=== PATIENT | female | born 1935 | race Caucasian/White ===

== ENCOUNTER 2020-12-09 11:15 | Outpatient (CLI) | payer MEDICARE | END 2020-12-09 11:16 | disposition home or self-care (01) | LOC: CSHWCC 11:15 | PROVIDERS: ATTEND Nurse Practitioner Family | DX: I87.312 Chronic venous hypertension (idiopathic) with ulcer of left lower extremity (principal); I87.2 Venous insufficiency (chronic) (peripheral); E10.622 Type 1 diabetes mellitus with other skin ulcer; L97.329 Non-pressure chronic ulcer of left ankle with unspecified severity; S91.309D Unspecified open wound, unspecified foot, subsequent encounter; R60.0 Localized edema; I10 Essential (primary) hypertension; I25.810 Atherosclerosis of coronary artery bypass graft(s) without angina pectoris; W45.8XXD Other foreign body or object entering through skin, subsequent encounter | CPT/HCPCS: 17250; 97139; G0463; 99203 ==

== ENCOUNTER 2021-05-16 10:06 | Outpatient (CLI) | payer MEDICARE | END 2021-05-16 10:07 | disposition home or self-care (01) | LOC: CSHWCC 10:06 | PROVIDERS: ATTEND Nurse Practitioner Family | DX: I87.311 Chronic venous hypertension (idiopathic) with ulcer of right lower extremity (principal); I87.312 Chronic venous hypertension (idiopathic) with ulcer of left lower extremity; E03.9 Hypothyroidism, unspecified; E10.622 Type 1 diabetes mellitus with other skin ulcer; I10 Essential (primary) hypertension; I25.810 Atherosclerosis of coronary artery bypass graft(s) without angina pectoris; I87.2 Venous insufficiency (chronic) (peripheral); L97.812 Non-pressure chronic ulcer of other part of right lower leg with fat layer exposed; L97.221 Non-pressure chronic ulcer of left calf limited to breakdown of skin; M79.662 Pain in left lower leg; R60.0 Localized edema; W45.8XXS Other foreign body or object entering through skin, sequela | CPT/HCPCS: 11042; 29581; 99213; G0463 ==

== ENCOUNTER 2021-07-20 09:34 | Outpatient (CLI) | payer MEDICARE | END 2021-07-20 09:35 | disposition home or self-care (01) | LOC: CSHWCC 09:34 | PROVIDERS: ATTEND Nurse Practitioner Family | DX: I87.312 Chronic venous hypertension (idiopathic) with ulcer of left lower extremity (principal); E03.9 Hypothyroidism, unspecified; E10.622 Type 1 diabetes mellitus with other skin ulcer; I10 Essential (primary) hypertension; I25.810 Atherosclerosis of coronary artery bypass graft(s) without angina pectoris; I87.2 Venous insufficiency (chronic) (peripheral); L97.221 Non-pressure chronic ulcer of left calf limited to breakdown of skin; L97.822 Non-pressure chronic ulcer of other part of left lower leg with fat layer exposed; M79.662 Pain in left lower leg; R60.0 Localized edema; W45.8XXS Other foreign body or object entering through skin, sequela ==

== ENCOUNTER 2021-08-10 11:09 | Outpatient (CLI) | payer MEDICARE | END 2021-08-10 11:10 | disposition home or self-care (01) | LOC: CSHWCC 11:09 | PROVIDERS: ATTEND Nurse Practitioner Family | DX: I87.313 Chronic venous hypertension (idiopathic) with ulcer of bilateral lower extremity (principal); I87.2 Venous insufficiency (chronic) (peripheral); E10.622 Type 1 diabetes mellitus with other skin ulcer; E10.51 Type 1 diabetes mellitus with diabetic peripheral angiopathy without gangrene; L97.811 Non-pressure chronic ulcer of other part of right lower leg limited to breakdown of skin; L97.221 Non-pressure chronic ulcer of left calf limited to breakdown of skin; L97.821 Non-pressure chronic ulcer of other part of left lower leg limited to breakdown of skin; L97.822 Non-pressure chronic ulcer of other part of left lower leg with fat layer exposed; E03.9 Hypothyroidism, unspecified; I25.810 Atherosclerosis of coronary artery bypass graft(s) without angina pectoris; M79.662 Pain in left lower leg; R60.0 Localized edema; W45.8XXD Other foreign body or object entering through skin, subsequent encounter | CPT/HCPCS: 29581; 99214; G0463 ==

== ENCOUNTER 2021-08-31 14:43 | Outpatient (CLI) | payer MEDICARE | END 2021-08-31 14:44 | disposition home or self-care (01) | LOC: CSHWCC 14:43 | PROVIDERS: ATTEND Nurse Practitioner Family | DX: I87.313 Chronic venous hypertension (idiopathic) with ulcer of bilateral lower extremity (principal); I87.2 Venous insufficiency (chronic) (peripheral); E10.622 Type 1 diabetes mellitus with other skin ulcer; L97.811 Non-pressure chronic ulcer of other part of right lower leg limited to breakdown of skin; L97.221 Non-pressure chronic ulcer of left calf limited to breakdown of skin; L97.821 Non-pressure chronic ulcer of other part of left lower leg limited to breakdown of skin; L97.822 Non-pressure chronic ulcer of other part of left lower leg with fat layer exposed; I25.810 Atherosclerosis of coronary artery bypass graft(s) without angina pectoris; M79.662 Pain in left lower leg; E03.9 Hypothyroidism, unspecified; R60.0 Localized edema; W45.8XXD Other foreign body or object entering through skin, subsequent encounter ==

== ENCOUNTER 2021-09-26 11:47 | Outpatient (CLI) | payer MEDICARE | END 2021-09-26 11:48 | disposition home or self-care (01) | LOC: CSHWCC 11:47 | PROVIDERS: ATTEND Nurse Practitioner Family | DX: I87.312 Chronic venous hypertension (idiopathic) with ulcer of left lower extremity (principal); I87.311 Chronic venous hypertension (idiopathic) with ulcer of right lower extremity; E10.622 Type 1 diabetes mellitus with other skin ulcer; L97.811 Non-pressure chronic ulcer of other part of right lower leg limited to breakdown of skin; L97.221 Non-pressure chronic ulcer of left calf limited to breakdown of skin; L97.821 Non-pressure chronic ulcer of other part of left lower leg limited to breakdown of skin; S91.309D Unspecified open wound, unspecified foot, subsequent encounter; R60.0 Localized edema; E03.9 Hypothyroidism, unspecified; I25.810 Atherosclerosis of coronary artery bypass graft(s) without angina pectoris | CPT/HCPCS: 36416 ==

== ENCOUNTER 2021-10-19 14:06 | Emergency (ER) | payer OTHER, MEDICARE | END 2021-10-19 16:02 | disposition home or self-care (01) | LOC: CSHERS 14:06 | DX: S22.31XA Fracture of one rib, right side, initial encounter for closed fracture (principal); I25.10 Atherosclerotic heart disease of native coronary artery without angina pectoris; E10.39 Type 1 diabetes mellitus with other diabetic ophthalmic complication; H42 Glaucoma in diseases classified elsewhere; E78.00 Pure hypercholesterolemia, unspecified; E78.5 Hyperlipidemia, unspecified; I10 Essential (primary) hypertension; W01.198A Fall on same level from slipping, tripping and stumbling with subsequent striking against other object, initial encounter ==